=== PATIENT | female | born 1975 | race African-American/Black ===

== ENCOUNTER 2018-08-09 08:07 | Emergency (ER) | payer MEDICAID ==
[~2018-08-09] VITALS: Ht 162.6 cm; Wt 130.0 kg
[2018-08-09 09:15] LABS: CHLORIDE 107 mEq/L (98-107)
[2018-08-09 09:16] LABS: BASOPHILS % 0.5 % (0.0-2.0); EOSINOPHILS % 1.7 % (0.0-5.0); HEMATOCRIT. 36.4 % (36.0-48.0); HEMOGLOBIN. 11.6 g/dL (12.0-16.0); LYMPHOCYTES % 39.3 % (20.0-50.0); MEAN CORPUSCULAR HEMOGLOBIN 23.7 pg (28.0-32.0); MEAN CORPUSCULAR VOLUME 74.5 fL (81.0-99.0); MEAN PLATELET VOLUME 8.1 fl (7.4-10.4); MONOCYTES % 5.5 % (2.0-8.0); PLATELET 316 x1000/uL (130-400); RED BLOOD CELL COUNT 4.89 mill/uL (4.2-5.4); RED CELL DISTRIBUTION WIDTH 18.1 % (11.6-14.6)
[2018-08-09 09:18] LABS: PARTIAL THROMBOPLASTIN TIME 26.9 sec (23.4-31.0); PROTHROMBIN TIME 10.3 sec (9.6-11.0)
[2018-08-09 09:19] LABS: ETHANOL BLOOD < 10 mg/dL
[2018-08-09 09:28] LABS: HCG SCREEN NEGATIVE
[2018-08-09] MEDS ORDERED: KETOROLAC 30MG/ML VIAL IV ONE (09:45)
[2018-08-09] MEDS ORDERED: POTASSIUM CHLORIDE 20MEQ TABLET SR PO ONE (09:45)
[2018-08-09 09:50] LABS: *AMPHETAMINES SCREEN URINE NEGATIVE (NEGATIVE); *BARBITURATES SCREEN URINE NEGATIVE (NEGATIVE); *BENZODIAZEPINES SCREEN URINE NEGATIVE (NEGATIVE); *COCAINE SCREEN URINE NEGATIVE (NEGATIVE)
[2018-08-09 09:51] LABS: METHADONE URINE SCREEN NEGATIVE (NEGATIVE); OPIATES URINE SCREEN NEGATIVE (NEGATIVE); PHENCYCLIDINE URINE SCREEN NEGATIVE (NEGATIVE)
[2018-08-09 09:52] LABS: CANNABINOID URINE SCREEN PRESUMTIVE POSITIVE (NEGATIVE)
[2018-08-09 12:31] VITALS: BP 140/77
== END 2018-08-09 12:34 | disposition home or self-care (01) ==
LOC: ER 08:07
DX: R07.89 Other chest pain (principal); I10 Essential (primary) hypertension; E87.6 Hypokalemia; J45.909 Unspecified asthma, uncomplicated; E78.00 Pure hypercholesterolemia, unspecified; F17.200 Nicotine dependence, unspecified, uncomplicated
CPT/HCPCS: 36415; 71045; 80053; 80305; 80320; 81025; 83880; 84484; 84703; 85025; 85610; 85730; 93005; 93970; 96374; 99284; J1885; Z7610; G0480

== ENCOUNTER 2018-08-15 12:11 | Emergency (ER) | payer MEDICAID ==
[~2018-08-15] VITALS: Ht 160 cm; Wt 138.2 kg
[2018-08-15 15:03] VITALS: BP 140/89
== END 2018-08-15 15:04 | disposition home or self-care (01) ==
LOC: ER 12:11
DX: Z51.89 Encounter for other specified aftercare (principal)
CPT/HCPCS: 99281